=== PATIENT | female | born 1980 | race African-American/Black ===

== ENCOUNTER → 2017-01-12 | Outpatient (CLI) | payer BC ==
[~2017-01-12] MED LIST: ALBUAER2 INH; DIPH25CA37 PO; EPP3/2 IM; IBUP600T44 PO; ZOLP5TAB PO
[2017-01-12 18:33] LABS: URINE APPEARANCE CLEAR (CLEAR); URINE BILIRUBIN NEG (NEG); URINE COLOR YELLOW; URINE NITRITE NEG (NEG); URINE SPECIFIC GRAVITY 1.028 (1.000-1.030); UROBILINOGEN NEG (NEG)
[2017-01-12 18:35] LABS: MANUAL MICROSCOPIC REQUIRED? NO; REVIEW REQ? NO
== END | disposition home or self-care (01) ==
LOC: C.LABSPEC 17:35
PROVIDERS: ATTEND Obstetrics & Gynecology
DX: O34.219 Maternal care for unspecified type scar from previous cesarean delivery (principal)

== ENCOUNTER → 2017-01-21 | Outpatient (CLI) | payer BC | END | disposition home or self-care (01) | LOC: C.PAPS 16:14 | PROVIDERS: ATTEND Obstetrics & Gynecology | DX: Z34.91 Encounter for supervision of normal pregnancy, unspecified, first trimester (principal) ==

== ENCOUNTER → 2017-01-21 | Outpatient (CLI) | payer BC ==
[2017-01-24 01:36] LABS: CHLAMYDIA TRACH RNA*** NOT DETECTED (NOT DETECTED); GC (NEIS GONORRHOEAE)RNA** NOT DETECTED (NOT DETECTED)
== END | disposition home or self-care (01) ==
LOC: C.LABSPEC 08:59
PROVIDERS: ATTEND Obstetrics & Gynecology
DX: O34.219 Maternal care for unspecified type scar from previous cesarean delivery (principal)

== ENCOUNTER → 2017-02-02 | Outpatient (CLI) | payer BC ==
[2017-02-02 10:41] LABS: COMPLETE YES; EOS % 2.9 %; HEMATOCRIT 37.2 % (37-47); IG% 0.2 %; LYMPH % 35.9 %; LYMPH ABS # 2.08 K/uL (1.2-3.4); MEAN CELL VOLUME 86.9 fL (80-100); MEAN CORPUSCULAR HEMOGLOBIN 30.4 pg (25-34); MEAN CORPUSCULAR HGB CONC 34.9 g/dl (32-36); MONO % 5.3 %; NEUT % 55.7 %; PLATELET COUNT 328 K/uL (130-400); RED BLOOD COUNT 4.28 M/uL (4.2-5.4)
== END | disposition home or self-care (01) ==
LOC: C.LAB1850 09:30
PROVIDERS: ATTEND Obstetrics & Gynecology
DX: O34.219 Maternal care for unspecified type scar from previous cesarean delivery (principal); Z3A.00 Weeks of gestation of pregnancy not specified

== ENCOUNTER → 2017-03-20 | Outpatient (CLI) | payer BC ==
[2017-03-20 11:46] LABS: GTGD 50 Grams
== END | disposition home or self-care (01) ==
LOC: C.LAB1850 09:44
PROVIDERS: ATTEND Obstetrics & Gynecology
DX: Z34.93 Encounter for supervision of normal pregnancy, unspecified, third trimester (principal)

== ENCOUNTER → 2017-04-07 | Outpatient (CLI) | payer BC ==
[2017-04-07 18:50] LABS: URINE APPEARANCE CLEAR (CLEAR); URINE BILIRUBIN NEG (NEG); URINE COLOR YELLOW; URINE NITRITE NEG (NEG); URINE PH 7.5 (4.5-7.5); URINE SPECIFIC GRAVITY 1.014 (1.000-1.030); UROBILINOGEN NEG (NEG)
[2017-04-07 19:01] LABS: MANUAL MICROSCOPIC REQUIRED? NO; REVIEW REQ? NO
== END | disposition home or self-care (01) ==
LOC: C.LABSPEC 10:16
PROVIDERS: ATTEND Nurse Practitioner Adult Health
DX: O26.899 Other specified pregnancy related conditions, unspecified trimester (principal)

== ENCOUNTER → 2017-04-13 | Outpatient (CLI) | payer BC ==
[2017-04-14 05:59] LABS: ESTIMATED AVERAGE GLUCOSE 117 mg/dl; HA1C FLAG Normal (Normal)
== END | disposition home or self-care (01) ==
LOC: C.LAB1850 16:34
PROVIDERS: ATTEND Internal Medicine Endocrinology, Diabetes & Metabolism
DX: O24.419 Gestational diabetes mellitus in pregnancy, unspecified control (principal); Z3A.00 Weeks of gestation of pregnancy not specified

== ENCOUNTER → 2017-06-16 | Outpatient (CLI) | payer BC ==
[2017-06-16 12:28] LABS: HEMATOCRIT 34.5 % (37-47)
[2017-06-16 14:22] LABS: URINE APPEARANCE CLEAR (CLEAR); URINE BILIRUBIN NEG (NEG); URINE COLOR YELLOW; URINE EPITHELIAL CELL AUTO 20-30 /lpf (0-5); URINE NITRITE NEG (NEG); URINE PH 7.5 (4.5-7.5); URINE SPECIFIC GRAVITY 1.028 (1.000-1.030); UROBILINOGEN NEG (NEG)
[2017-06-16 14:47] LABS: MANUAL MICROSCOPIC REQUIRED? NO; REVIEW REQ? NO; SULFASALICYLIC ACID NEG (NEG)
== END | disposition home or self-care (01) ==
LOC: C.LAB1850 11:18
PROVIDERS: ATTEND Obstetrics & Gynecology
DX: Z34.82 Encounter for supervision of other normal pregnancy, second trimester (principal)

== ENCOUNTER → 2017-08-21 | Outpatient (CLI) | payer OTHER | END | disposition home or self-care (01) | LOC: C.LABSPEC 13:46 | PROVIDERS: ATTEND Obstetrics & Gynecology | DX: R30.0 Dysuria (principal) ==

== ENCOUNTER 2017-08-28 05:10 | Inpatient (IN) | payer BC, OTHER ==
--- NOTE | 2017-08-27 11:50 | PAT Medication Instructions ---
Service Date Aug 27, 2017. Current Home Medication List Acetaminophen (Tylenol), 1,000 MG PO PRN Albuterol Hfa (Ventolin Hfa), 2 PUFFS INH Q6H PRN for PRN Diphenhydramine Hcl (Benadryl Allergy), 1-2 CAP PO PRN Epinephrine (Epipen), 0.3 MG IM UD Multivit/Min/Iron/Fol Ac/Pren ( Vitamin), 1 TAB PO HS [Humalog Insulin], 20 UNITS INJ TIDM [Humulin], 20 UNITS INJ HS Medication Instructions For Your Scheduled Surgery - Continue as directed: Epinephrine (Epipen), 0.3 MG IM UD - Hold the following medications the morning of surgery: [Humalog Insulin], 20 UNITS INJ TIDM Diphenhydramine Hcl (Benadryl Allergy), 1-2 CAP PO PRN - Take the following medications the morning of surgery with a sip of water OTHERWISE NOTHING TO EAT OR DRINK AFTER MIDNIGHT: Acetaminophen (Tylenol), 1,000 MG PO PRN (may take if needed up to 4 hours prior to surgery) - Take the following medications as scheduled the night before surgery: [Humulin N], 20 UNITS INJ HS [Humalog Insulin], 20 UNITS INJ TIDM Acetaminophen (Tylenol), 1,000 MG PO PRN Multivit/Min/Iron/Fol Ac/Pren ( Vitamin), 1 TAB PO HS Diphenhydramine Hcl (Benadryl Allergy), 1-2 CAP PO PRN If you have any questions please call us at [phone] or [phone] or [phone]
--- NOTE | 2017-08-27 12:49 | HISTORY & PHYSICAL EXAMINATION ---
DATE OF ADMISSION: 08/28/2017 NOTICE TO RECEIVING [facility]/AGENCY This information is strictly Confidential and protected under [place] law. [place] law prohibits you from making any further disclosure of this information unless further disclosure is expressly permitted by the written consent of the person to whom it pertains or is authorized by law. A general authorization for the release of medical or other information is not sufficient for this purpose. Hospital accepts no responsibility if the information is made available to any other person, INCLUDING THE PATIENT. HISTORY OF PRESENT ILLNESS: Ronna is a 36-year-old 3, para 1-0-1-1 at 39-2/7 weeks who presents for a repeat section. Her first delivery was in April 2011 at 39 and 3/7 weeks and was delivered of an 8 pound baby with intolerance to labor. Although the patient had hoped for a she developed insulin requiring gestational diabetes and has now reached term and so recommendation for delivery by due date. She has no signs or symptoms of labor. Is agreeable to a repeat section. She declines tubal ligation as her will be obtaining a vasectomy. The patient probably has prediabetes as her 16-week glucose test was 212 so she is probably a pregestational diabetic. She has been managed with insulin throughout the . Her most recent growth ultrasound was performed on August 11 at 36 and 6/7 weeks. This revealed an AC in the 90th percentile and estimated weight in the 79th percentile. She has been having weekly NSTs since 32 weeks, which have been reactive and twice weekly NSTs at 36 weeks which have been reactive. She does have a history of depression and she is A positive, group B strep carrier. She has asthma, but this has been well controlled. PAST OBSTETRICAL AND GYNECOLOGIC HISTORY: As noted above. She does have a history of elective termination in October of 1999. The specimen denies history of sexually transmitted diseases or abnormal Pap smears. ALLERGIES: PENICILLIN CAUSING HIVES AND ITCHING, VICODIN TABS CAUSING ITCHING AND SLEEPINESS, AZITHROMYCIN AND DOXYCYCLINE CAUSING VOMITING. MEDICATIONS: Insulin, montelukast sodium, Ventolin inhaler, Benadryl as needed, vitamins and Flonase. PAST MEDICAL HISTORY: Significant for being prediabetic/type 2 diabetic, migraines, anxiety and depression, asthma. She has had the chickenpox. She also has psoriasis and psoriatic arthritis. PAST SURGICAL HISTORY: Includes , D&C and wisdom teeth removal. SOCIAL HISTORY: The patient denies tobacco, alcohol or drug use. She lives with her spouse and son. PAST OB AND REGIONAL ACCOUNT MANAGER HISTORY: The patient denies history of sexually transmitted diseases or abnormal Pap smears. PHYSICAL EXAMINATION: GENERAL: This is a well-developed, well-nourished -[place] female in no acute distress. VITAL SIGNS: Blood pressure 110/80, weight 172 pounds. NECK: Supple without thyromegaly or lymphadenopathy. CHEST: Clear to auscultation bilaterally. CARDIOVASCULAR: Regular rate and rhythm without murmurs, gallops or rubs. ABDOMEN: Soft, gravid and nontender. BACK: Without costovertebral angle tenderness. EXTREMITIES: Benign. PELVIC: Deferred. LABORATORY DATA: Blood type O positive, antibody negative, rubella immune, RPR nonreactive. Urine culture at her first OB grew out group B strep. Hepatitis negative, HIV negative, chlamydia and gonorrhea negative, cystic fibrosis screening negative. ASSESSMENT: Ronna is a 36-year-old -[place] female 3, para 1-0-1-1 with an intrauterine at 39 and 2/7 weeks. She presents for repeat section secondary to insulin requiring gestational diabetes without onset of labor. The risks of the procedure were discussed with the patient. The risks including anesthesia, bleeding that might require transfusion, infection, poor wound healing, damage to surrounding structures including bowel, bladder, vessels, nerves and ureters with need for further surgery, hospitalization or intervention. Discussed also the risks of any surgery including heart attack, blood clot, stroke or . Consent was reviewed and signed. She declines tubal ligation. Surgery is planned for the
[2017-08-27 13:11] LABS: BASO % 0.2 %; BASO ABS # 0.01 K/uL (0-0.2); EOS % 6.9 %; HEMATOCRIT 36.8 % (37-47); HEMOGLOBIN 12.6 g/dL (12.0-16.0); IG# 0.03 K/uL (0.00-0.02); LYMPH % 21.8 %; LYMPH ABS # 1.26 K/uL (1.2-3.4); MEAN CELL VOLUME 90.9 fL (80-100); MEAN CORPUSCULAR HEMOGLOBIN 31.1 pg (25-34); MEAN CORPUSCULAR HGB CONC 34.2 g/dl (32-36); MEAN PLATELET VOLUME 9.3 fL (7.4-10.4); MONO % 10.9 %; MONO ABS # 0.63 K/uL (0.11-0.59); NEUT % 59.7 %; NEUT ABS # 3.44 K/uL (1.4-6.5); PLATELET COUNT 242 K/uL (130-400); RED CELL DISTRIBUTION WIDTH SD 46.2 fL (36.4-46.3); WHITE BLOOD COUNT 5.77 K/uL (4.8-10.8)
[~2017-08-28] VITALS: Ht 154.9 cm; Wt 77.6 kg
[2017-08-28] VITALS (7 sets, daily range): BP systolic 127–143; BP diastolic 72–89; PULSE 78–88; TEMP 36.4–37; O2SAT 96–100; Ht 154.9 cm; Wt 77.6 kg
[~2017-08-28 05:10] MED LIST changes: +ACET-1256 PO; -ALBUAER2 INH; -DIPH25CA37 PO; +DIPH25CA65 PO; -IBUP600T44 PO; +INSU100I SC; +INSU1INJ23 SC; +PRENTAB26 PO; -ZOLP5TAB PO
[2017-08-28] MEDS ORDERED: LACTATED RINGER'S 1000ML 1,000 ML IV SCH ×3 (05:15→10:37)
[2017-08-28] MEDS ORDERED: CITRIC ACID/SODIUM CITRATE 15 ML UDC PO SCH (06:00)
[2017-08-28] MEDS ORDERED: CLINDAMYCIN IV 900 MG in DEXTROSE 5% 50ML 44 ML IV SCH (06:00)
[2017-08-28 06:09] LABS: BASO % 0.1 %; BASO ABS # 0.01 K/uL (0-0.2); EOS % 4.8 %; EOS ABS # 0.33 K/uL (0-0.5); HEMOGLOBIN 12.4 g/dL (12.0-16.0); IG# 0.03 K/uL (0.00-0.02); LYMPH % 26.1 %; MEAN CELL VOLUME 90.7 fL (80-100); MEAN CORPUSCULAR HEMOGLOBIN 31.2 pg (25-34); MEAN CORPUSCULAR HGB CONC 34.4 g/dl (32-36); MEAN PLATELET VOLUME 9.4 fL (7.4-10.4); MONO % 11.2 %; MONO ABS # 0.77 K/uL (0.11-0.59); NEUT % 57.4 %; NEUT ABS # 3.96 K/uL (1.4-6.5); PLATELET COUNT 255 K/uL (130-400); RED CELL DISTRIBUTION WIDTH CV 13.9 % (11.5-14.5); RED CELL DISTRIBUTION WIDTH SD 45.9 fL (36.4-46.3)
--- NOTE | 2017-08-28 07:19 | History & Physical Bridge Note ---
H&P Re-Evaluation Bridge Note: I have examined the patient, reviewed the History & Physical and in the interval since the performance of the History & Physical I have noted the following changes of clinical significance: No changes noted
[2017-08-28] MEDS ORDERED: MoRPHine SULFATE PF 1 MG/ML 10 ML AMP/VIAL ONE (07:27)
[2017-08-28] MEDS ORDERED: OXYTOCIN INJ 10 UNITS/ML VIAL ONE ×2 (07:27→08:27)
[2017-08-28] MEDS ORDERED: FENTANYL CITRATE INJ 50 MCG/1 ML 2 ML VIAL ONE (07:27)
[2017-08-28] MEDS ORDERED: PHENYLEPHRINE HCL INJ 10 MG/ML VIAL ONE (07:54)
[2017-08-28] MEDS ORDERED: ONDANSETRON INJ 2 MG/ML 2 ML VIAL ONE (08:10)
--- NOTE | 2017-08-28 08:41 | [facility] Post Operative Brief Note ---
Immediate Operative Summary Operative Date Aug 28, 2017. Pre-Operative Diagnosis IUP AT 39+ WEEKS; HISTORY OF PREVIOUS SECTION; INSULIN REQUIRING GESTATIONAL DIABETIC Post-Operative Diagnosis SAME Procedure(s) Performed Repeat LOW TRANSVERSE SECTION WITH DELIVERY OF LIVE FEMALE CHILD Surgeon DR VANCE Medicare Sales Executive Surgeon(s) DR ARIAS Estimated Blood Loss 700 CC Findings Consistent with Post-Op Diagnosis Fluids (cc crystalloids) 2000cc Specimens PLACENTA-HOLD CORD BLOOD Drains None Anesthesia Type Spinal Complication(s) none Disposition Accompanied Pt To Recover: yes Disposition: L&D
[2017-08-28] MEDS ORDERED: LACTATED RINGER'S 1000ML 500 ML IV PRN (08:44)
[2017-08-28] MEDS ORDERED: NALOXONE HCL INJ 0.08 MG in SYRINGE 1.8 ML IV PRN (08:44)
[2017-08-28] MEDS ORDERED: NALOXONE HCL INJ 1 MG in SODIUM CHLORIDE 0.9% 1000ML 1,000 ML IV PRN (08:44)
[2017-08-28] MEDS ORDERED: SODIUM CHLORIDE 0.9% 1000ML 1,000 ML IV PRN (08:44)
[2017-08-28] MEDS ORDERED: MoRPHine SULFATE PF 1 MG/ML 10 ML AMP/VIAL EPI PRN (08:45)
[2017-08-28] MEDS ORDERED: NALOXONE HCL 0.4 MG/1 ML VIAL/CARP IV PRN (08:45)
[2017-08-28] MEDS ORDERED: SUPERCREAM 0.870 % 15GM JAR EXT PRN (08:45)
[2017-08-28] MEDS ORDERED: ACETAMINOPHEN 325 MG TAB PO PRN (08:45)
[2017-08-28] MEDS ORDERED: NALBUPHINE HCL INJ 10 MG/ML AMP IV PRN (08:45)
[2017-08-28] MEDS ORDERED: DIPHTHERIA/TETANUS/PERTUSSIS 0.5 ML SYR/VIAL IM. ONE (08:45)
[2017-08-28] MEDS ORDERED: MoRPHine SULFATE 2 MG/ML CARP IV PRN (08:45)
[2017-08-28] MEDS ORDERED: EpHEDrine SULFATE INJ 50 MG/ML AMP IV PRN (08:45)
[2017-08-28] MEDS ORDERED: BENZOCAINE 20% AER SPR 82.5 GM CAN EXT PRN (08:45)
[2017-08-28] MEDS ORDERED: NO NARCOTICS OR SEDATIVES SCH (08:45)
[2017-08-28] MEDS ORDERED: HYDROCORTISONE ACETATE 25 MG SUPP PR PRN (08:45)
[2017-08-28] MEDS ORDERED: DiphenhydrAMINE HCL 50 MG/ML VIAL IV PRN (08:45)
[2017-08-28] MEDS ORDERED: OXYTOCIN 30 UNITS/500ML NSS IV PRN (08:45)
[2017-08-28] MEDS ORDERED: LANOLIN OINT EXT PRN ×2 (08:45→10:45)
--- NOTE | 2017-08-28 08:57 | Anesthesiology Progress Note ---
Anesthesia Post Op Note Date & Time Aug 28, 2017 at 08:56 Notes Mental Status: alert / awake / arousable, participated in evaluation Pt Amnestic to Procedure: Yes Nausea / Vomiting: adequately controlled Pain: adequately controlled Airway Patency, RR, SpO2: stable & adequate BP & HR: stable & adequate Hydration State: stable & adequate Neuraxial Anesthesia: was administered, sensory block is resolving Anesthetic Complications: no major complications apparent
--- NOTE | 2017-08-28 09:02 | Medical Student: [facility] ---
Immediate Operative Summary Operative Date Aug 28, 2017. Pre-Operative Diagnosis IUP at 40 weeks, prior section, insulin treated gestational DM Post-Operative Diagnosis Same Procedure(s) Performed Repeat section via low lying incision and delivery of live female . Surgeon Dr. Castellanos [employer] Surgeon(s) Daniel Kumari MS3 Estimated Blood Loss 800cc Findings Viable female child of 8lb 12oz. Fluids (cc crystalloids) 2000 Specimens Placenta Cord blood Drains None Anesthesia Spinal Complication(s) None Disposition L&D
[2017-08-28] MEDS: ONDANSETRON INJ 2 MG/ML 2 ML VIAL IV PRN ×2 (10:36→18:47)
[2017-08-28] MEDS: KETOROLAC TROMETHAMINE 30 MG/ML VIAL IV. PRN ×3 (10:43→23:32)
[2017-08-28] MEDS ORDERED: DC PCA PRN (10:45)
[2017-08-28] MEDS ORDERED: IBUPROFEN 600 MG TAB PO PRN (10:45)
[2017-08-28] MEDS ORDERED: OXYTOCIN INJ 20 UNITS in LACTATED RINGER'S 1000ML 1,000 ML IV SCH (11:30)
[2017-08-28] MEDS: MEPERIDINE HCL 25 MG/ML CARP IV PRN ×2 (11:42→14:16)
[2017-08-28] MEDS: SIMETHICONE 80 MG CHEW PO SCH ×3 (12:00→19:44)
--- NOTE | 2017-08-28 13:45 | OPERATIVE REPORT ---
DATE OF OPERATION: 08/28/2017 PREOPERATIVE DIAGNOSES: 1. Intrauterine at 39 weeks. 2. History of previous section. 3. Insulin requiring gestational diabetes. POSTOPERATIVE DIAGNOSES: Same. PROCEDURE: Repeat lower transverse section. SURGEON: Dr. Kia Castellanos. [employer]BILE [employer]ANT OPERATORS: Dr. Ledezma and Daniel Gutiérrez, MS3. ANESTHESIA: Spinal. ESTIMATED BLOOD LOSS: 700 mL. FLUIDS: 2000 mL. URINE OUTPUT: 60 mL of clear yellow urine drained from the bladder at the end of the procedure. INDICATIONS: The patient is a 2, para 1-0-0-1, who presents for repeat section. She was diagnosed with gestational diabetes at her 16-week Glucola when she felt bad with a value of 212, which likely meant she was a pregestational diabetic. She was monitored throughout with growth ultrasounds and NSTs and the baby did well. She had hoped to be back, but given the recommendation and an insulin-requiring gestational diabetic she delivered around her due date and labor was not eminent. We have elected to proceed with repeat section. FINDINGS: Viable female infant delivered from cephalic presentation. Weight pending. Apgars 8 and 9. Normal uterus, tubes, and ovaries were noted bilaterally. There was a small broad ligament hematoma after repairing the hysterotomy that was evaluated and found to be stable. COMPLICATIONS: None. DRAINS: Mueller. DISPOSITION: To recovery room in stable condition. DESCRIPTION OF PROCEDURE: The patient was taken to the operating room, where she was identified verbally and by bracelet. She was seated on the operating table where spinal anesthetic was placed by anesthesia. She was placed in dorsal supine position with a leftward tilt and a Mueller catheter was placed sterilely. She was prepped and draped sterilely. Her anesthetic was tested and found to be adequate. A time-out was done identifying correct patient, procedure, positioning and preoperative antibiotics. A Pfannenstiel skin incision was made over the previous incision and this was taken down to the underlying layer of fascia with the knife and Bovie electrocautery. Bleeding was attended to with Bovie electrocautery. The fascia was incised in the midline with cautery and taken out laterally with scissors. The superior edge of the fascial incision was grasped, elevated and the underlying layer of rectus muscle was taken off bluntly and with scissors. In a similar fashion, the inferior edge of the fascial incision was grasped, elevated and the underlying layer of rectus muscle was taken off bluntly and with scissors. The muscles were bluntly in the midline. The peritoneum had been entered sharply while removing the fascia from the rectus muscle. The nut blanker operator's finger was placed through this and there were no adhesions. The peritoneum was taken superiorly and inferiorly sharply with scissors with good visualization of the bladder. The incision was stretched. The bladder blade was placed. The bladder flap was created sharply using scissors and the flap was created sharply and digitally with the nut blanker operator's finger. The bladder blade was replaced. The hysterotomy incision was scored with a knife. It was entered with a snap. The nut blanker operator's fingers were placed into this and the incision was stretched. Amniotomy occurred during this with clear fluid. The nut blanker operator's hand was placed into the incision and the head was delivered through the incision atraumatically using fundal pressure. There was no nuchal cord. The nose and mouth were bulb suctioned. The rest of the infant was then delivered without difficulty. There was immediate cry. was vigorous. The nose and mouth were bulb suctioned. The cord was clamped and cut and the was handed off to waiting disk operator for drying and attention. Cord blood was obtained. The placenta was manually expressed. The uterus was exteriorized and cleared of all clot and debris with moistened laparotomy sponges. The hysterotomy incision was repaired in 2 layers, the first in a running locked layer and the second in an imbricating layer. A small hematoma was noted in the broad ligament on the left that was observed closely and was not found to be expanding. The posterior cul-de-sac was irrigated and cleared of all clot and debris. The hysterotomy incision was again inspected and found to be hemostatic. The hematoma on the left side was stable. The uterus was reanteriorized. Bleeding area on the incision was attended with a [id number] suture of 0 Vicryl. Some bleeding edges were attended to with Bovie electrocautery. The incision was again inspected and found to be hemostatic. The small hematoma in the left broad ligament was stable. Muscles were reapproximated in the midline with interrupted sutures of 0 Vicryl. The fascia was reapproximated in the midline, starting at the edges and meeting in the middle with 0 Vicryl. Subcuticular tissue was irrigated and bleeding was attended to with Bovie electrocautery until hemostasis was good and the skin was closed with subcuticular stitch of 4-0 Vicryl. All sponge, lap and needle counts were correct x2. The patient tolerated the procedure well and was taken to recovery room in stable condition. I attest to the content of the Intraoperative Record and any orders documented therein. Any exception s are noted below.
--- NOTE | 2017-08-28 17:07 | Discharge Instructions ---
Discharge Instructions Date of Service Aug 28, 2017. Admission Reason for Admission: Previous Delivery, Ante Discharge Discharge Diagnosis / Problem: delivery Discharge Goals Goal(s): Routine recovery after Medications Continue Dispensed Medications: lansinoh Activity Recommendations Activity Limitations: per Instructions/Follow-up section . Instructions / Follow-Up Instructions / Follow-Up Please note: you will need to be re-tested for diabetes with a glucose tolerance test at 6 weeks after delivery. This is done to make sure you are not still diabetic, please be sure to do this. ACTIVITY RECOMMENDATIONS: * Gradual return to full activity over the next 2-3 weeks. * No lifting - nothing heavier than baby over the next 2-3 weeks. * Do not engage in vigorous exercise, sexual activity or sports until cleared by your physician. * Do not drive or operate any motorized equipment until cleared by your physician. * You may shower/bathe daily. MEDICATIONS: For discomfort or pain, you may use Acetaminophen (Tylenol), Ibuprofen (Advil), or Naproxen (Aleve) following the package directions. For constipation you may use Colace following the package directions. BREAST CARE: If you are not breast feeding: * Wear a supportive bra 24 hours a day for one to two weeks. * Avoid stimulating your breasts and nipples as much as possible during the first few weeks after delivery. * When taking a shower, have the warm water hit your back, not breasts. * When your breasts feel full, apply ice packs. Usually three to four times a day helps ease the discomfort. * Take a mild pain medication (Tylenol / Motrin) when you are uncomfortable. If breast feeding: * Use breast milk to lubricate nipples. Lansinoh cream may be used for sore nipples. You do not need to remove cream prior to breast feeding. If using a different brand of cream, check the label for directions regarding removal of cream prior to nursing. * Wear a supportive bra. * If having problems with breasts or breast feeding, call a sharepoint consultant or your health care provider. SPECIAL CARE INSTRUCTIONS: When you are discharged from the hospital, it is important for you to follow the instructions listed below: * During the first week at home, you should be able to care for yourself and your baby. In addition, the usual light household activities are encouraged. * Limit your activities to the way you feel. Do not try to clean the house or move furniture. Be sensible. * If you actively engage in sports and have done so up until the time of your delivery, you may resume these activities as soon as you feel able. This may take up to one month or even longer. Use good judgment. * Continue to take your vitamins for at least six weeks after the of your baby. * Your diet need not be limited unless you were on a special diet before your delivery. Breast-feeding mothers need around 2500 calories per day and at least 64-80 ounces of fluid per day (8 to 10 glasses). * You should eat foods from the four major food groups. Crash diets or fad diets are to be avoided. Eating lean meats, fresh fruits and vegetables, low-fat dairy products, high fiber foods and a regular exercise program, will help you get back to your pre- weight without putting your health at risk. * Constipation is sometimes a problem after delivery. Take a mild laxative as needed. If breast feeding, Milk of Magnesia is acceptable to use. You may use a suppository or Fleets enema. * A daily shower or tub bath is suggested. Wash incision daily with warm soapy water and pat dry. It doesn't need to be covered unless drainage is present. * A bloody vaginal discharge will usually continue until around four weeks . A small amount of bleeding may continue for as long as six weeks. Vaginal discharge changes from the bright red bleeding after delivery to pink then brownish and finally yellowish-pink before becoming white and disappearing. * Bleeding may increase with activity. Your first period may come in 4-8 weeks. If you are breast feeding, your period may be delayed even longer. * [place] (sex) can begin whenever both you and your partner feel comfortable and do not have any form of genital infection. It is recommended that you wait at least six weeks for internal and external healing to occur. If you have questions, please talk to your health care practitioner. A condom should be used to prevent infection and . * Foreplay, gentle intercourse and lubrication is very important the first several times to prevent pain. A water-based lubricant such as K-Y jelly or Astroglide may be used. * If you have RH negative blood and your baby is RH positive, you will receive RHOGAM by injection prior to discharge. The nurse will give you a card to keep with you that has the date and place that you received RHOGAM after delivery. * During your care, you had a Rubella screen done to check for the presence of rubella antibodies in your blood. If your test was negative, you will receive a Rubella vaccine prior to discharge. This vaccine may cause a fever, soreness at the injection site and flu-like symptoms. If these symptoms persist, notify your health care practitioner. is not advised for one month after a Rubella vaccine. * Verbalizes understanding of car seat law as reviewed with patient nursing. * Car Seat hand-out given and reviewed with patient by nursing. * Shaken baby information reviewed with patient by nursing. Call you doctor if: * Heavy bleeding (saturating several pads an hour) or passing clots the size of your fist. * A fever >101 degrees F (38.3 degrees C) on two occasions four hours apart and /or chills. * Unusual pain in the pelvic or vaginal areas. * Call the doctor for any increased redness, drainage or swelling around the incision and any pain unrelieved by prescribed pain medication. * "Baby Blues" lasting longer than two weeks. If you have any questions or concerns, call your health care practitioner at . FOLLOW UP VISIT: * Please call the office at to schedule a 6 week examination. It is important you keep this appointment. It is important for you to make arrangements for either yearly or twice yearly check-ups thereafter. Current Hospital Diet Patient's current hospital diet: Regular OB Diet Discharge Diet Recommended Diet: Regular Diet Procedures Procedures Performed: Repeat LOW TRANSVERSE SECTION WITH DELIVERY OF LIVE FEMALE CHILD Pending Studies Studies pending at discharge: no Medical Emergencies . Who to Call and When: Medical Emergencies: If at any time you feel your situation is an emergency, please call 911 immediately. . Non-Emergent Contact Non-Emergency issues call your: Primary Care Provider . . "Provider Documentation" section prepared by Rubina Nelson. . VTE Core Measure Inpt VTE Proph given/why not?: SCD's
[2017-08-28] MEDS: DOCUSATE SODIUM 100 MG CAP PO SCH ×2 (19:43→19:44)
[2017-08-29] MEDS ORDERED: MEPERIDINE HCL 50 MG/ML CARP IV PRN ×2 (01:30)
[2017-08-29] MEDS ORDERED: DiphenhydrAMINE HCL 50 MG/ML VIAL IV PRN (01:30)
[2017-08-29] MEDS ORDERED: OXYCODONE/ACETAMINOPHEN 5-325 TAB PO PRN (01:30)
[2017-08-29] MEDS ORDERED: KETOROLAC TROMETHAMINE 30 MG/ML VIAL IV. PRN (01:30)
[2017-08-29] MEDS ORDERED: DC INTRASPINAL MORPHINE ONE (01:30)
[2017-08-29 04:30] VITALS: BP 128/82; PULSE 74; TEMP 36.8; O2SAT 99
[2017-08-29 07:20] VITALS: BP 128/83; PULSE 89; TEMP 37; O2SAT 99
--- NOTE | 2017-08-29 07:21 | Progress Note ---
Subjective Aug 29, 2017. Subjective conversation w/ patient (Pt doing well, nausea resolved. Cath out this AM. Has not walked to bathroom yet.), physical exam, chart review, lab review Ambulation: limited ambulation Voiding: no voiding problems Passing Gas: Yes Diet Tolerance: Regular Diet Lochia: Moderate Feeding Type: Breast Feeding Pain: controlled Review of Systems Respiratory: No shortness of breath Cardiac: No palpitations Abdomen: No nausea, No vomiting Objective Vital Signs Date Time Temp Pulse Resp B/P (MAP) Pulse Ox O2 Delivery O2 Flow Rate FiO2 08/29/17 04:30 36.8 74 16 128/82 (97) 99 Room Air 08/28/17 23:35 36.9 83 18 138/81 (100) 97 Room Air 08/28/17 23:35 18 96 08/28/17 23:35 96 Room Air 08/28/17 22:30 20 98 08/28/17 21:30 20 98 08/28/17 20:30 20 100 08/28/17 19:30 20 100 08/28/17 19:30 37.0 78 20 127/85 (99) 100 Room Air 08/28/17 15:30 36.8 86 20 143/89 (107) Room Air 08/28/17 15:30 20 98 08/28/17 15:30 98 Room Air 08/28/17 11:30 100 Room Air 08/28/17 11:30 36.4 88 20 128/72 (90) 100 Room Air 08/28/17 11:30 36.4 88 20 128/72 (90) 100 Room Air 08/28/17 11:30 20 100 Physical Exam General Appearance: WELL-APPEARING, WD/WN, NO APPARENT DISTRESS Respiratory/Chest: lungs clear, normal breath sounds, no respiratory distress Cardiovascular: regular rate, rhythm Abdomen: soft Fundus: Firm, Non-Tender, Relation to Umbilicus (at U) Incision Description: Clean, Dry & Intact Extremities: no calf tenderness Laboratory Results Last 24 Hours Test 08/28/17 07:27 08/29/17 04:44 Bedside Glucose 90 mg/dl Assessment and Plan Post-Op Day#: 1 Continue Routine Care: 36 yof [id number], s/p C/S 08/28 O+/RI/GBS+ appropriate abx given Vitals reviewed and wnl Hgb stable Pt doing well clinically, states she has been diagnosed by her PCP as a pre- diabetic. POC glucose here wnl. Will need 6 week post GTT and routine follow up with her PCP. Continue routine care - enc ambulation, support, monitor pain and lochia. GABRIELE NELSON FMR PGY 1 Resident Physician Supervision Note: I interviewed and examined the patient. Discussed with Dr. Nelson and agree with findings and plan as documented in the note. Any exceptions or clarifications are listed here: [None] Documented By: Blanca Oropeza Resident Tracking Resident Involvement: Resident Care Provided Care Provided: OB Delivery
[2017-08-29] MEDS ORDERED: PRENATAL VITAMIN TAB PO SCH (08:00)
[2017-08-29 08:36] LABS: BASO % 0.1 %; BASO ABS # 0.01 K/uL (0-0.2); EOS % 3.7 %; EOS ABS # 0.27 K/uL (0-0.5); HEMATOCRIT 32.1 % (37-47); IG# 0.02 K/uL (0.00-0.02); LYMPH % 22.4 %; LYMPH ABS # 1.64 K/uL (1.2-3.4); MEAN CELL VOLUME 90.7 fL (80-100); MEAN CORPUSCULAR HEMOGLOBIN 31.1 pg (25-34); MEAN CORPUSCULAR HGB CONC 34.3 g/dl (32-36); MEAN PLATELET VOLUME 8.8 fL (7.4-10.4); MONO % 7.3 %; MONO ABS # 0.53 K/uL (0.11-0.59); NEUT % 66.2 %; NEUT ABS # 4.84 K/uL (1.4-6.5); PLATELET COUNT 211 K/uL (130-400); RED CELL DISTRIBUTION WIDTH CV 13.9 % (11.5-14.5); WHITE BLOOD COUNT 7.31 K/uL (4.8-10.8)
[2017-08-29] MEDS: PRENATAL VITAMIN TAB PO SCH (08:40)
[2017-08-29] MEDS: DOCUSATE SODIUM 100 MG CAP PO SCH ×2 (08:41→19:46)
[2017-08-29] MEDS: SIMETHICONE 80 MG CHEW PO SCH ×4 (08:41→19:45)
[2017-08-29] MEDS ORDERED: DIPHTHERIA/TETANUS/PERTUSSIS 0.5 ML SYR/VIAL IM. ONE (09:00)
[2017-08-29 12:00] VITALS: BP 138/79; PULSE 91; TEMP 37; O2SAT 98
[2017-08-29] MEDS: OXYCODONE/ACETAMINOPHEN 5-325 TAB PO PRN ×3 (12:39→20:51)
[2017-08-29 15:30] VITALS: BP 143/87; PULSE 79; TEMP 36.9
[2017-08-29] MEDS: IBUPROFEN 600 MG TAB PO PRN ×2 (16:39→20:50)
[2017-08-29 23:20] VITALS: BP 149/86; PULSE 75; TEMP 36.9
[2017-08-30 00:40] VITALS: BP_SYST 114; BP_SYST 151; BP_DIAS 72; BP_DIAS 82
[2017-08-30] MEDS: IBUPROFEN 600 MG TAB PO PRN ×6 (00:47→22:39)
[2017-08-30] MEDS: OXYCODONE/ACETAMINOPHEN 5-325 TAB PO PRN ×6 (00:47→22:39)
[2017-08-30 04:00] VITALS: BP 135/86
[2017-08-30 06:21] LABS: HEMATOCRIT 32.1 % (37-47); HEMOGLOBIN 10.9 g/dL (12.0-16.0); MEAN CELL VOLUME 91.2 fL (80-100); MEAN PLATELET VOLUME 8.8 fL (7.4-10.4); PLATELET COUNT 210 K/uL (130-400); RED CELL DISTRIBUTION WIDTH CV 14.1 % (11.5-14.5); RED CELL DISTRIBUTION WIDTH SD 46.4 fL (36.4-46.3); WHITE BLOOD COUNT 7.72 K/uL (4.8-10.8)
[2017-08-30] MEDS: DOCUSATE SODIUM 100 MG CAP PO SCH ×3 (07:28→20:29)
--- NOTE | 2017-08-30 07:56 | Progress Note ---
Subjective Aug 30, 2017. Subjective conversation w/ patient, physical exam, lab review Ambulation: ambulating normally Voiding: no voiding problems Passing Gas: Yes Diet Tolerance: Regular Diet Lochia: Small Feeding Type: Breast Feeding Pain: controlled with oral pain meds Comment: Mood good. Wants to hold off on meds for now. Objective Vital Signs Date Time Temp Pulse Resp B/P (MAP) Pulse Ox O2 Delivery O2 Flow Rate FiO2 08/30/17 04:00 135/86 (102) 08/30/17 00:40 151/82 (105) 114/72 (86) 08/29/17 23:20 Room Air 08/29/17 23:20 36.9 75 18 149/86 (107) Room Air 08/29/17 15:30 36.9 79 20 143/87 (105) Room Air 08/29/17 15:30 Room Air 08/29/17 12:00 37.0 91 20 138/79 (98) 98 Room Air Physical Exam General Appearance: WELL-APPEARING, WD/WN, NO APPARENT DISTRESS Abdomen: non tender, soft Fundus: Firm, Non-Tender, Relation to Umbilicus (at u) Incision Description: Clean, Dry & Intact Extremities: non-tender, normal inspection Laboratory Results Last 24 Hours Test 08/29/17 08:21 08/30/17 06:08 White Blood Count 7.31 K/uL 7.72 K/uL Red Blood Count 3.54 M/uL 3.52 M/uL Hemoglobin 11.0 g/dL 10.9 g/dL Hematocrit 32.1 % 32.1 % Mean Corpuscular Volume 90.7 fL 91.2 fL Mean Corpuscular Hemoglobin 31.1 pg 31.0 pg Mean Corpuscular Hemoglobin Concent 34.3 g/dl 34.0 g/dl Platelet Count 211 K/uL 210 K/uL Mean Platelet Volume 8.8 fL 8.8 fL Neutrophils (%) (Auto) 66.2 % Lymphocytes (%) (Auto) 22.4 % Monocytes (%) (Auto) 7.3 % Eosinophils (%) (Auto) 3.7 % Basophils (%) (Auto) 0.1 % Neutrophils # (Auto) 4.84 K/uL Lymphocytes # (Auto) 1.64 K/uL Monocytes # (Auto) 0.53 K/uL Eosinophils # (Auto) 0.27 K/uL Basophils # (Auto) 0.01 K/uL RDW Standard Deviation 46.0 fL 46.4 fL RDW Coefficient of Variation 13.9 % 14.1 % Immature Granulocyte % (Auto) 0.3 % Immature Granulocyte # (Auto) 0.02 K/uL Assessment and Plan Post-Op Day#: 2 Continue Routine Care: Doing well. Routine care. Plan f/u PP at 2 weeks to check meds. MOnitor bps.
[2017-08-30 08:10] VITALS: BP 147/89; PULSE 94; TEMP 37.1
[2017-08-30] MEDS: SIMETHICONE 80 MG CHEW PO SCH ×3 (08:27→20:29)
[2017-08-30] MEDS: PRENATAL VITAMIN TAB PO SCH (08:27)
[2017-08-30 16:30] VITALS: BP 138/87; PULSE 87; TEMP 36.9; O2SAT 99
[2017-08-31] VITALS: BP 138/88; PULSE 76; TEMP 36.8; O2SAT 100
[2017-08-31] MEDS: IBUPROFEN 600 MG TAB PO PRN ×3 (02:48→11:05)
[2017-08-31] MEDS: OXYCODONE/ACETAMINOPHEN 5-325 TAB PO PRN ×3 (02:49→11:05)
--- NOTE | 2017-08-31 05:40 | Progress Note ---
Subjective Aug 31, 2017. Subjective conversation w/ patient, physical exam, lab review Voiding: no voiding problems Passing Gas: Yes Diet Tolerance: Regular Diet Lochia: Small Feeding Type: Breast Feeding Pain: nipple tenderness with breast feeding Objective Vital Signs Date Time Temp Pulse Resp B/P (MAP) Pulse Ox O2 Delivery O2 Flow Rate FiO2 08/31/17 00:00 100 Room Air 08/31/17 00:00 36.8 76 18 138/88 (105) 100 Room Air 08/30/17 16:30 99 Room Air 08/30/17 16:30 36.9 87 20 138/87 (104) Room Air 08/30/17 08:10 37.1 94 20 147/89 (108) Room Air 08/30/17 08:10 Room Air Physical Exam General Appearance: WELL-APPEARING, WD/WN, NO APPARENT DISTRESS Abdomen: non tender, soft Fundus: Firm, Non-Tender, Relation to Umbilicus (at u) Incision Description: Clean, Dry & Intact Extremities: non-tender, normal inspection Laboratory Results Last 24 Hours Test 08/30/17 06:08 White Blood Count 7.72 K/uL Red Blood Count 3.52 M/uL Hemoglobin 10.9 g/dL Hematocrit 32.1 % Mean Corpuscular Volume 91.2 fL Mean Corpuscular Hemoglobin 31.0 pg Mean Corpuscular Hemoglobin Concent 34.0 g/dl RDW Standard Deviation 46.4 fL RDW Coefficient of Variation 14.1 % Platelet Count 210 K/uL Mean Platelet Volume 8.8 fL Assessment and Plan Post-Op Day#: 3 Continue Routine Care: Doing well. Plan d/c home. Instructions given. f/u in 2 weeks for pp check. Call with mood issues.
[2017-08-31] MEDS ORDERED: OXYC-57 PO (05:41)
[2017-08-31 07:20] VITALS: BP 135/83; PULSE 80; TEMP 36.9; O2SAT 99
[2017-08-31] MEDS: PRENATAL VITAMIN TAB PO SCH (07:41)
[2017-08-31] MEDS: DOCUSATE SODIUM 100 MG CAP PO SCH (07:42)
[2017-08-31] MEDS: SIMETHICONE 80 MG CHEW PO SCH (07:42)
[2017-08-31] MEDS ORDERED: INFLUENZA VIRUS QUAD VACCINE 0.5 ML SYR IM. ONE (08:45)
[2017-08-31] MEDS ORDERED: INFLUENZA ADMINISTRATION CHARGE ONE (08:45)
--- NOTE | 2017-09-01 19:36 | DISCHARGE SUMMARY ---
ADMISSION DIAGNOSES: 1. Intrauterine at 39+ weeks. 2. History of section x1. 3. Insulin requiring gestational diabetes. 4. Lack of labor. POSTOPERATIVE DIAGNOSES: Same. PROCEDURES: Repeat lower transverse section. HISTORY OF PRESENT ILLNESS: Ronna is a 36-year-old 3, para 1-0-1-1 at 39-2/7 weeks who presents for repeat section. Her first delivery was in April of 2011 at 39 and 3/7 weeks. She was delivered of an 8 pound baby via section for intolerance to labor. Although the patient had hoped for a , she developed insulin requiring gestational diabetes and has now reached her due date and so recommendation for delivery by due date given this complication. She has no signs or symptoms of labor. She is agreeable to repeat section. She declines tubal ligation and her will be obtaining a vasectomy. The patient probably has pregestational diabetes as her 16 week glucose test was 212. She has been managed with insulin throughout her . Her most recent growth ultrasound was performed on August 11 at 36 and 6/7 weeks with an AC in the 98th percentile and an estimated weight in the 79th percentile. She has been having reactive NSTs since 32 weeks. She does have a history of depression. 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 The rest of the patient's detailed history and physical, please see her dictated history and physical. ASSESSMENT: Ronna is a 36-year-old -[place] female 3, para 1-0-1-1 with an intrauterine at 39 and 2/7 weeks. She presents for repeat section secondary to insulin requiring gestational diabetes without the onset of labor. HOSPITAL COURSE: The patient was admitted, she underwent a repeat lower transverse section without difficulty to deliver a viable female child. There were normal uterus, tubes, and ovaries noted bilaterally. Estimated blood loss was 700 mL. The patient's postoperative course was uncomplicated. She tolerated a regular diet, ambulated without difficulty, voided after removal of her Mueller catheter and had her pain well controlled with oral pain medications. She was discharged home on postoperative day 3. She declined antidepressant treatment for history of previous depression as she was feeling much better after this delivery. She will return in 2 weeks for a postoperative close followup. She will call if she has any concerns. She was discharged home with Percocet for pain.
== END 2017-08-31 14:05 | disposition home or self-care (01) | DRG 766 ==
LOC: C.LD 05:10 → EEVIPCON 07:30 → C.OBG 11:54 → EDSTATUS 09-04 07:30
PROVIDERS: ADMIT Obstetrics & Gynecology; ATTEND Obstetrics & Gynecology
PROC: 10D00Z1 Extraction of Products of Conception, Low, Open Approach (ICD-10-PCS; principal; 2017-08-28 07:30)
DX: O24.424 Gestational diabetes mellitus in childbirth, insulin controlled (principal); O34.211 Maternal care for low transverse scar from previous cesarean delivery; O99.52 Diseases of the respiratory system complicating childbirth; J45.909 Unspecified asthma, uncomplicated; Z22.330 Carrier of Group B streptococcus; Z79.899 Other long term (current) drug therapy; Z37.0 Single live birth; Z3A.39 39 weeks gestation of pregnancy

== ENCOUNTER 2023-06-27 23:27 | Inpatient (IN) ==
--- NOTE | 2023-06-27 23:55 | Emergency Department Note ---
History of Present Illness General Chief complaint: Cardiac Assessment Stated complaint: CHEST PAIN, PALPITATIONS, "HEART FLUTTERS" Time Seen by Provider: 06/27/23 23:44 History of Present Illness Maximum Pain Intensity: 5 This 42-year-old female presents the ER complaining of chest pain shortness of breath and palpitations for the past 2 weeks steadily getting worse. She has traveled recently. No prior heart disease or blood clots or stroke. She had intermittent leg swelling. Patient states her symptoms are worse with activity. Blood sugars have been stable. Patient denies fever, chills, cough, congestion, abdominal pain, flulike illness. Patient also complains of intermittent numbness and tingling to extremities. No heat or cold intolerances. No night sweats. Home Medications Medication Instructions Recorded Confirmed Type ibuprofen 400 mg tablet 400 mg PO BID PRN Pain 10/03/18 04/02/23 History albuterol sulfate 90 mcg/actuation 1 inh inhalation QID PRN shortness 09/30/22 04/02/23 Rx aerosol inhaler of breath or wheezing #8.5 grams diphenhydramine HCl 25 mg tablet PO PRN 09/30/22 04/02/23 History fluticasone propionate 50 intranasal PRN 09/30/22 04/02/23 History mcg/actuation nasal spray,suspension rizatriptan 10 mg disintegrating 10 mg PO .COMPLEX PRN Migraine 09/30/22 04/02/23 Rx tablet (Maxalt-CAD MANAGER) Headache #20 tabs metformin 500 mg tablet,extended 2,000 mg (4 x 500 mg) PO DAILY 11/19/22 04/02/23 Rx release 24hr #360 tabs flaxseed oil 1,000 mg capsule 1,000 mg PO DAILY 12/26/22 04/02/23 History multivitamin (Daily Multi-Vitamin 1 tab PO DAILY 12/26/22 04/02/23 History tablet) propranolol 10 mg tablet 10 mg PO TID PRN anxiety #60 tabs 03/31/23 04/02/23 Rx Allergies Allergy/AdvReac Type Severity Reaction Status Date / Time azithromycin Allergy Intermediate Rash Verified 04/02/23 12:54 doxycycline Allergy Intermediate Rash Verified 04/02/23 12:54 hydrocodone Allergy Intermediate FLUSHING,SWEATING, Verified 04/02/23 12:54 AND ITCHING Penicillins Allergy Intermediate Rash Verified 04/02/23 12:54 nut - unspecified Allergy Mild anaphylaxis Verified 04/02/23 12:54 with every nut except peanuts Fish Containing Products Allergy Unknown ANAPHYLAXIS Verified 04/02/23 12:54 Macrobid Allergy Rash, Uncoded 03/31/23 10:01 sick, shortness of breath, fever, increased HR Past Med/Surg History Medical History (Updated 06/28/23 @ 02:31 by Rickie Richards DO) Diabetes Prolapse of urethra Migraine headache Asthma Surgical History S/P colonoscopy History of tooth extraction H/O section X2 Family History Father Hypertension Mother Hypertension Prediabetes Denies family history of Ovarian cancer Prostate cancer Myocardial infarction Breast cancer Colorectal cancer Social History Smoking Status: Never smoker Second Hand Exposure: Yes ( smokes outside); Do You Dip or Chew Tobacco: No; Hx Alcohol Use: Yes Alcohol type: beer, wine and hard liquor Alcohol Intake Frequency: 2-4 x/Month Hx Substance Use: No Preferred Language: Arabic Visual Impairment: No Limitations Hearing Ability: Normal marital status: Current Living Situation: Spouse and Family current occupational status: employed 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 [employer] How many Children do You have: 2 Feels Safe at Home: Yes Childhood Exposure to Second-Hand Smoke: No Diet: diabetic Dental Care, Regularly: Yes Physical Activity Frequency: Does not Exercise Seatbelt Use: always Sunscreen Use: Yes Review of Systems A total of 10 systems reviewed and were otherwise negative Physical Exam Vital Signs Vital Signs - 24 hr 06/27/23 23:35 06/27/23 23:44 06/27/23 23:59 Temperature 36.5 C Temperature Source Temporal Artery Scan Pulse Rate 100 H Pulse Rate [Apical] 98 H Respiratory Rate 20 13 Respiratory Effort / Characteristics Non-Labored Non-Labored Spontaneous Respiratory Depth Normal Normal Respiratory Pattern Regular Blood Pressure 130/81 Blood Pressure [Right Arm] 131/99 Blood Pressure Mean 97 Blood Pressure Mean [Right Arm] 109 Blood Pressure Position [Right Arm] Semi-fowlers Pulse Oximetry 99 99 100 Oxygen Delivery Method Room Air Room Air Room Air Sepsis Recent Fever Within 48 Hours No Sepsis New/Unexplained Change in Mental Status No Sepsis Action Taken by Nursing No Action Required 06/28/23 01:19 Temperature Temperature Source Pulse Rate Pulse Rate [Apical] 94 H Respiratory Rate 18 Respiratory Effort / Characteristics Non-Labored Spontaneous Respiratory Depth Normal Respiratory Pattern Regular Blood Pressure Blood Pressure [Right Arm] 127/70 Blood Pressure Mean Blood Pressure Mean [Right Arm] 89 Blood Pressure Position [Right Arm] Semi-fowlers Pulse Oximetry 99 Oxygen Delivery Method Room Air Sepsis Recent Fever Within 48 Hours Sepsis New/Unexplained Change in Mental Status Sepsis Action Taken by Nursing VITALS: Vitals are noted on the nurse's note and reviewed by myself. Vital signs stable. GENERAL: Pleasant female, in no acute distress, nondiaphoretic, well-developed well-nourished. SKIN: Capillary reflex less than 2 seconds. HEENT: Normocephalic. PERRLA. EOMI. Nares patent. Mucous membranes moist. Neck is supple without nuchal rigidity. HEART: Regular rate and rhythm LUNGS: Clear to auscultation bilaterally without wheezes, rales or rhonchi. No retractions or accessory muscle use. ABDOMEN: Positive bowel sounds x 4. Normal tympanic percussion. Soft, nontender, without masses or organomegaly. Estevez sign negative. No guarding or rebound tenderness. MUSCULOSKELETAL: No gross musculoskeletal defects. No peripheral edema noted. NEURO: Patient was alert and oriented to person place and time. No focal neurological deficits. Course Administered Medications Magnesium Sulfate/Dextrose (Magnesium Sulfate / D5w) 1 gm in 100 mls @ 100 mls/hr IV Q1H YULISSA Stop: 06/28/23 03:00 Last Admin: 06/28/23 02:19 Dose: 100 mls/hr Documented By: MARY ANNE Infusion: 06/28/23 02:16 Dose: Infused Documented By: MARY ANNE Admin: 06/28/23 01:16 Dose: 100 mls/hr Documented By: MARY ANNE Medical Decision Making Medical Records Attestation: I reviewed the patient's medical records. Home Medications Current Medication List: was personally reviewed by me Laboratory Data Attestation: I reviewed the patient's lab results. 06/28/23 00:06 06/28/23 00:06 Lab Results 06/28/23 06/28/23 06/28/23 Range/Units 00:06 00:41 02:00 WBC 3.78 L (4.8-10.8) K/ul RBC 4.07 L (4.20-5.40) M/uL Hgb 11.2 L (12.0-16.0) g/dl Hct 34.4 L (37.0-47.0) % MCV 84.5 (80.0-100.0) fL MCH 27.5 (25.0-34.0) pg MCHC 32.6 (32.0-36.0) g/dL RDW Std Deviation 41.7 (36.4-46.3) fL RDW Coeff of Merry 13.4 (11.5-14.5) % Plt Count 377 (130-400) K/uL MPV 8.8 L (9.4-12.4) fL Immature Gran % (Auto) 0.3 % Neut % (Auto) 34.1 % Lymph % (Auto) 49.5 % [facility] % (Auto) 13.2 % Eos % (Auto) 2.9 % Baso % (Auto) 0.0 % Neut # (Auto) 1.29 L (1.40-6.50) K/uL Lymph # (Auto) 1.87 (1.20-3.40) K/uL [facility] # (Auto) 0.50 (0.11-0.59) K/uL Eos # (Auto) 0.11 (0.00-0.50) K/uL Baso # (Auto) 0.00 (0.00-0.20) K/uL Immature Gran # (Auto) 0.01 (0.01-0.20) K/uL D-Dimer 300 (0-500) ug/L FEU Sodium 136 (136-145) mmol/L Potassium 4.0 (3.5-5.1) mmol/L Chloride 103 (98-107) mmol/L Carbon Dioxide 28 (21-32) mmol/L Anion Gap 5 (3-11) BUN 13 (6-23) mg/dl Creatinine 0.51 L (0.6-1.2) mg/dl Est Cr Clr Drug Dosing 121.9 ml/min Est GFR ( Amer) 139.4 ml/min Est GFR (Non-Af Amer) 120.3 ml/min BUN/Creatinine Ratio 25.5 H (10-20) Glucose 285 H (70-99(Fasting)) mg/dl Calcium 9.4 (8.6-10.3) mg/dl Magnesium 1.6 L (1.7-2.4) mg/dl Total Bilirubin 0.3 (0.2-1.0) mg/dl AST 33 (13-39) U/L ALT 43 (7-52) U/L Alkaline Phosphatase 79 (34-104) U/L Troponin I High Sens 3.4 3.8 (0-14) pg/ml Total Protein 7.3 (6.0-8.3) gm/dl Albumin 4.0 (3.4-5.0) gm/dl Globulin 3.3 (2.5-4.0) gm/dl Albumin/Globulin Ratio 1.2 (0.9-2) Lipase 67 (11-82) U/L TSH < 0.010 L (0.300-4.500) uIu/ml Free T4 4.12 H (0.61-1.60) ng/dl HCG, Qual Negative (Negative) SARS-CoV-2 (PCR) NEGATIVE (Negative) Influenza Type A (PCR) Negative (Neg) Influenza Type B (PCR) Negative (Neg) RSV (RT-PCR) Negative (Neg) Imaging Data Attestation: I personally reviewed and interpreted this imaging study as follows: MDM Narrative Prior records/ancillary studies reviewed. Triage Nursing notes reviewed. Additional history obtained from nursing. The patient's history was concerning for chest pain. Differential diagnosis: Etiologies such as cardiac ischemia, aortic dissection, pulmonary embolism, pneumonia, pneumothorax, musculoskeletal, infections, pericarditis, myocarditis, esophageal rupture, gastrointestinal, as well as others were entertained. Physical examination: As above. ER treatment provided: An order was placed for continuous cardiac monitoring. The monitor shows a rate of 60-100 with a sinus rhythm per my interpretation. IV fluids, magnesium On reassessment the patient felt better. Diagnostic interpretation by me: The electrocardiogram was Ordered for chest pain EKG: Normal sinus, occasional PVC, T wave inversions in the lateral leads, rate of 103. Impression sinus tachycardia T wave versions in the lateral leads occasional PVC independently interpreted by myself I think arrhythmia is unlikely. EKG shows normal sinus rhythm with no interval abnormalities such as QT prolongation or WPW. There are no findings to suggest Brugada syndrome. Cardiac monitoring in the emergency department reveals no tachycardic or bradycardic dysrhythmia. Hypertrophic cardiomyopathy was considered but there are no clear historical elements pointing toward this. EKG is not suggestive. The QRS voltage is not extremely large The labs Independently Interpreted by myself revealed low TSH and minimally elevated T4. T3 and thyroid antibodies were ordered Hyperglycemia without DKA. Low magnesium and this was replaced as above. Negative hCG. Negative troponin. Mild anemia Negative D-dimer. Imaging studies: Chest x-ray with no acute consolidation, pneumothorax or free air per my independent interpretation HEART SCORE: Hx: high/mod/low suspicion: 0 ECG: ST depression/nonspecific changes/normal: 0 Age: Greater than 65/45-64/less than 45: 0 Risk factors: (Hypertension, hyperlipidemia, diabetes, coronary disease, tobacco use, cocaine use): 1 Troponin: Greater than 2 times normal limits/1-2 times normal limits/normal: 0 Total: 1 Consultation: A consultation was placed with the hospitalist. The case was discussed and diagnostics were reviewed. The patient was evaluated in the ER for further treatment. Exam and history seem consistent with new onset hyperthyroidism with chest pain, palpitations and shortness of breath. Patient's been having intermittent episodes of palpitations and tachycardia with tingling and numbness to extremities. No prior history of thyroid disease. She has not been taking her propranolol for anxiety. Medicine was consulted and the case was discussed. She will be admitted to the medical service for further evaluation and treatment. By the evaluation outlined above emergent etiologies such as cardiac ischemia, aortic dissection, pulmonary embolism, pneumonia, pneumothorax, infections, pericarditis, myocarditis, gastrointestinal, as well as others were deemed relatively unlikely. The pt informed about the findings as listed above. All questions were answered and pleased with the treatment. The chart was completed utilizing [employer] 3D Speech voice recognition software. Grammatical errors, random word insertions, pronoun errors, and incomplete sentences are an occassional consequence of this system due to software limitations, ambient noise, and hardware issues. Any formal questions or concerns about the content, text, or information contained within the body of this dictation should be directly addressed to the physician magistrate assistant for clarification. Impression & Plan Hyperthyroidism, Chest pain, Acute dyspnea, Palpitations, Hypomagnesemia Discharge Plan Visit Data Chief Complaint: Cardiac Assessment Stated Complaint: CHEST PAIN, PALPITATIONS, "HEART FLUTTERS" ED Provider: Daniela Fabian ED Midlevel Provider: Sharmin Castrejon Discharge Problem: Hyperthyroidism, Chest pain, Acute dyspnea, Palpitations, Hypomagnesemia Patient Disposition: Admitted As Inpatient Condition: Good Forms Stand Alone Forms: Work/School Release (ED), Important Visit Information Prescriptions Prescriptions: No Action metformin 500 mg tablet extended release 24hr 2,000 mg PO DAILY Qty: 360 2RF propranolol 10 mg tablet 10 mg PO TID PRN (Reason: anxiety) Qty: 60 2RF multivitamin [Daily Multi-Vitamin] Tablet 1 tab PO DAILY flaxseed oil 1,000 mg capsule 1,000 mg PO DAILY Rx Instructions: administer with a meal albuterol sulfate 90 mcg/actuation HFA aerosol inhaler 1 inh inhalation QID PRN (Reason: shortness of breath or wheezing) Qty: 8.5 0RF rizatriptan [Maxalt-CAD MANAGER] 10 mg tablet,disintegrating 10 mg PO .COMPLEX PRN (Reason: Migraine Headache) Qty: 20 2RF Rx Instructions: Take one tablet at the onset of headache. May repeat dose every 2 hours x2. Do not exceed 3 doses per 24 hrs fluticasone propionate 50 mcg/actuation spray,suspension intranasal PRN diphenhydramine HCl 25 mg tablet PO PRN ibuprofen 400 mg Tablet 400 mg PO BID PRN (Reason: Pain) Referrals Referrals: Flor Hidalgo MD [Primary Care Provider] - Discharge Problem: Chest pain Qualifiers: Chest pain type: unspecified Qualified Code(s): R07.9 - Chest pain, unspecified
[2023-06-28 00:30] LABS: Eosinophils # (auto) 0.11 K/uL (0.00-0.50); Eosinophils % (auto) 2.9 %; Hematocrit (blood only) 34.4 % (37.0-47.0); Hemoglobin 11.2 g/dl (12.0-16.0); Immature Granulocytes # (auto) 0.01 K/uL (0.01-0.20); Immature Granulocytes % (auto) 0.3 %; Lymphocytes # (auto) 1.87 K/uL (1.20-3.40); Lymphocytes % (auto) 49.5 %; Mean Corpuscular Hemoglobin 27.5 pg (25.0-34.0); Mean Corpuscular Hgb Conc 32.6 g/dL (32.0-36.0); Mean Corpuscular Volume 84.5 fL (80.0-100.0); Mean Platelet Volume 8.8 fL (9.4-12.4); Monocytes % (auto) 13.2 %; Neutrophils # (auto) 1.29 K/uL (1.40-6.50); Neutrophils % (auto) 34.1 %; Platelet Count 377 K/uL (130-400); RDW Coefficient of Variation 13.4 % (11.5-14.5); RDW Standard Deviation 41.7 fL (36.4-46.3); Red Blood Count 4.07 M/uL (4.20-5.40); White Blood Count 3.78 K/ul (4.8-10.8)
[2023-06-28 00:40] LABS: Alanine Aminotransferase 43 U/L (7-52); Albumin Globulin Ratio 1.2 (0.9-2); Alkaline Phosphatase 79 U/L (34-104); Anion Gap 5 (3-11); Aspartate Aminotransferase 33 U/L (13-39); BUN Creatinine Ratio 25.5 (10-20); Bilirubin,Total 0.3 mg/dl (0.2-1.0); Blood Urea Nitrogen 13 mg/dl (6-23); Calcium 9.4 mg/dl (8.6-10.3); Carbon Dioxide 28 mmol/L (21-32); Chloride 103 mmol/L (98-107); Creatinine Clr Calc Pharmacy 121.9 ml/min; Est GFR (African American) 139.4 ml/min; Est GFR (Non-African American) 120.3 ml/min; Globulin 3.3 gm/dl (2.5-4.0); Glucose 285 mg/dl (70-99(Fasting)); Lipase 67 U/L (11-82); Magnesium 1.6 mg/dl (1.7-2.4); Sodium 136 mmol/L (136-145); Total Protein 7.3 gm/dl (6.0-8.3)
[2023-06-28 00:44] LABS: Pregnancy Test, Serum Negative (Negative)
[2023-06-28 00:46] LABS: Troponin I High Sensitivity 3.4 pg/ml (0-14)
[2023-06-28 01:03] LABS: Thyroid Stimulating Hormone < 0.010 uIu/ml (0.300-4.500)
[2023-06-28 01:04] LABS: D Dimer 300 ug/L FEU (0-500)
[2023-06-28] MEDS: MAGNESIUM SULFATE / D5W 1 GM/100 ML BAG IV SCH ×2 (01:16→02:19)
[2023-06-28 01:35] LABS: Influenza A virus by PCR Negative (Neg); Influenza B virus by PCR Negative (Neg); RSV by PCR Negative (Neg); SARS CoV2 RNA(COVID-19) Ceph NEGATIVE (Negative)
[2023-06-28 01:40] LABS: T4 Free Thyroxine 4.12 ng/dl (0.61-1.60)
--- NOTE | 2023-06-28 02:36 | History & Physical Report ---
Date of Service June 28, 2023 Assessment & Plan (1) Primary hyperthyroidism: Plan: 42 year old female admitted for heart palpitations. -Palpitations and chest discomfort/shortness of breath for past 2 weeks. -EKG sinus tachycardia with T wave inversions in V4-V6. -TSH <0.010, Free T4 4.12. Free T3 pending. -Electrolytes within normal limits. Hgb 11.2, likely not contributor to palpitations. -Patient likely with primary hyperthyroidism as the cause of her symptoms. -Will obtain anti-TPO, anti-thyroglobulin antibody levels. Patient would need radio-iodine uptake study for thyroid which can be done outpatient. -Free T4 >2 times UNL, will start on 10mg BID methimazole. -Can continue propranolol 10mg TID PRN. -Obtain echocardiogram and repeat EKG. -Can likely discharge if echo normal, f/u outpatient. (2) Hypomagnesemia: Plan: -Magnesium 1.6 in the ER. Repleted 2gm MgSulfate. (3) Prediabetes: Plan: -Hx of prediabetes, A1c 6.1 in March. -Hold metformin while inpatient. (4) Asthma: Plan: -Chronic, continue home inhalers. (5) Migraine headache: Plan: -Chronic, no current migraine. Plan F/E/N/GI: Carb consistent DVT: SCD Code: Full Dispo: telemetry. History of Present Illness Chief Complaint: heart palpitations Primary Care Provider: Flor Hidalgo MD Ronna is a 42 year old female w/ PmHx asthma, migraine, prediabetes headaches coming in for heart palpitation sensation and chest pain. Patient states that over the past 2 weeks she has had chest tightness and some shortness of breath. These symptoms mainly come about with exertion and she said that the level it comes about with now is unusual for her. She has a little bit of shortness of breath sensation in the room as we are speaking. 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 She has not had any fevers, chills, recent URI, constipation, dysuria. She takes metformin on a daily basis for her prediabetes and said her metformin and Thanksgiving had her with some diarrhea. She has had more anxiety recently but attributes this to her work. She was seen in late March for these anxiety symptoms and was given propranolol 10mg PRN to try however she did not try it yet due to fearing low blood pressure from the medication. She does not have any history of thyroid disorder, father had a history of cardiac murmur and cardiac disease. She has also been having insomnia as well. She states in the room as I am talking to her there have been a few instances of the heart palpitations where she feels a heavy beating and flutter for a few seconds and then the sensation stops. In the ER hemoglobin was 11.2, WBC 3.78, D-dimer, CMP, troponin unremarkable. Her TSH was <0.010 and her Free T4 was 4.12. Her EKG showed sinus tachycardia with T wave inversion in V4-V6 along with occasional PVC. CXR without acute process. She was given 2gm magnesium sulfate for a magnesium of 1.6. Allergies Allergy/AdvReac Type Severity Reaction Status Date / Time azithromycin Allergy Intermediate Rash Verified 04/02/23 12:54 doxycycline Allergy Intermediate Rash Verified 04/02/23 12:54 hydrocodone Allergy Intermediate FLUSHING,SWEATING, Verified 04/02/23 12:54 AND ITCHING Penicillins Allergy Intermediate Rash Verified 04/02/23 12:54 nut - unspecified Allergy Mild anaphylaxis Verified 04/02/23 12:54 with every nut except peanuts Fish Containing Products Allergy Unknown ANAPHYLAXIS Verified 04/02/23 12:54 Macrobid Allergy Rash, Uncoded 03/31/23 10:01 sick, shortness of breath, fever, increased HR Home Medications Medication Instructions Recorded Confirmed Type ibuprofen 400 mg tablet 400 mg PO BID PRN Pain 10/03/18 04/02/23 History fluticasone propionate 50 intranasal PRN 09/30/22 04/02/23 History mcg/actuation nasal spray,suspension rizatriptan 10 mg disintegrating 10 mg PO .COMPLEX PRN Migraine 09/30/22 04/02/23 Rx tablet (Maxalt-[employer]) Headache #20 tabs metformin 500 mg tablet,extended 2,000 mg (4 x 500 mg) PO DAILY 11/19/22 04/02/23 Rx release 24hr #360 tabs flaxseed oil 1,000 mg capsule 1,000 mg PO DAILY 12/26/22 04/02/23 History multivitamin (Daily Multi-Vitamin 1 tab PO DAILY 12/26/22 04/02/23 History tablet) albuterol sulfate 90 mcg/actuation 1 - 2 inh inhalation QID PRN 06/29/23 04/02/23 Rx aerosol inhaler shortness of breath or wheezing #8.5 grams diphenhydramine HCl 25 mg tablet 25 mg PO Q6H PRN itching #1 tab 06/29/23 04/02/23 Rx methimazole 10 mg tablet 10 mg PO BID #60 tabs 06/29/23 Rx propranolol 10 mg tablet 10 mg PO TID anxiety #90 tabs 06/29/23 Rx Past Med/Surg History Medical History (Updated 06/29/23 @ 09:50 by Reji Grant MD) Diabetes Prolapse of urethra Migraine headache Asthma Surgical History S/P colonoscopy History of tooth extraction H/O section X2 Family History Father Hypertension Mother Hypertension Prediabetes Denies family history of Ovarian cancer Prostate cancer Myocardial infarction Breast cancer Colorectal cancer Social History Smoking Status: Never smoker Second Hand Exposure: Yes ( smokes outside); Do You Dip or Chew Tobacco: No; Hx Alcohol Use: No Hx Substance Use: No Preferred Language: Serbian Communication Ability: Effective Visual Impairment: No Limitations Hearing Ability: Normal Gig Tender Required: No Beliefs That Will Affect Care: None marital status: Current Living Situation: Spouse current occupational status: employed 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 Physical Exam Constitutional: WD/WN, vitals as above Eyes: PERRL, conjunctivae normal, anicteric sclerae Neck: trachea midline, no thyromegaly Respiratory: normal respiratory effort, lungs clear to auscultation Cardiovascular: Rate/Rhythm: regular rate and regular rhythm Heart Sounds: normal S1, normal S2 and + murmur (Soft I/ holosystolic murmur. ) Gastrointestinal (Abdomen): normal bowel sounds, soft, nontender, no hepatosplenomegaly Skin: no rashes, warm and dry Psychiatric: A+Ox3, euthymic affect Results & Data Results & Data Vital Signs (Past 12 Hours) Vital Signs Temp Pulse Pulse Resp BP BP Pulse Ox 06/28/23 01:19 94 H 18 127/70 99 06/27/23 23:59 98 H 13 131/99 100 06/27/23 23:44 99 06/27/23 23:35 36.5 C 100 H 20 130/81 99 O2 Del Method 06/28/23 01:19 Room Air 06/27/23 23:59 Room Air 06/27/23 23:44 Room Air 06/27/23 23:35 Room Air Supervising Physician Co-Signing Physician Notes Attending addendum: I have physically seen this patient, have supervised the medical residents ac tivities, and agree with the H&P unless as otherwise noted. Assessment and Plan: Hyperthyroidism/thyrotoxicosis- Primary symptom of palpitations, chest discomfort and shortness of breath for the past 2 weeks EKG was sinus tachycardia and ST-T changes in leads V4 through V6 TSH less than 0.010, free T4 4.12 Check free T3, thyroid-stimulating antibody panel Will need thyroid ultrasound and I-131 thyroid uptake study Patient has reportedly been on propranolol 10 mg 3 times daily as needed anxiety, but was likely directly or indirectly treating tachycardia Propranolol 10 mg p.o. 3 times daily Start methimazole 10 mg p.o. twice daily Will need to establish with endocrinology Hypomagnesemia- Magnesium 1.6 Given magnesium sulfate 2 g IV, recheck laboratories in a.m. Contributing factor to tachycardia Prediabetes- Hold metformin for now, can be resumed upon discharge Place on Accu-Cheks with NovoLog SSI Remaining orders and notations as noted Resident Activity Tracking Resident Involvement: Resident Care Provided Care Provided: Adult Hospital Medicine
[2023-06-28] MEDS ORDERED: ALBUTEROL HFA 8 GM INHALER INH PRN (03:53)
[2023-06-28] MEDS ORDERED: PROPRANOLOL HCL 10 MG TAB PO PRN (03:53)
[2023-06-28] MEDS ORDERED: ONDANSETRON INJ 2 MG/ML 2 ML VIAL IV PRN (03:53)
--- NOTE | 2023-06-28 08:00 | Electrocardiogram Report ---
Test Reason : Blood Pressure : / mmHG Vent. Rate : 103 BPM Atrial Rate : 103 BPM P-R Int : 144 ms QRS Dur : 086 ms QT Int : 338 ms P-R-T Axes : 043 065 005 degrees QTc Int : 442 ms Sinus tachycardia with Premature ventricular complexes Voltage criteria for left ventricular hypertrophy Diffuse Minor Nonspecific T wave abnormality Abnormal ECG No previous ECGs available Confirmed by Zac Zamora ([id number]) on 06/28/2023 8:00:23 AM Referred By: REFERRED SELF Confirmed By:Zac Zamora
[2023-06-28] MEDS: methIMAzole 5 MG TABLET PO SCH ×2 (09:03→22:29)
--- NOTE | 2023-06-28 12:04 | XRay Report ---
XR chest 1V portable CLINICAL HISTORY: Chest pain, nonspecific TECHNIQUE: Single frontal radiograph of the chest was obtained. Comparison: Comparison is made to chest radiograph 11/17/2014 FINDINGS: No lines and tubes are seen. The cardiomediastinal silhouette is normal. The lungs are clear. No evid ence of pleural effusion or pneumothorax. IMPRESSION: No acute chest disease. ACT 112: Negative or not required by law. Electronically signed by: Adis Perlata M.D. 06/28/2023 12:03 PM
[2023-06-28] MEDS ORDERED: ATENOLOL 25 MG TABLET PO ONE (12:39)
--- NOTE | 2023-06-28 12:43 | XCELERA ---
[id number]
--- NOTE | 2023-06-28 16:50 | Ultrasound Report ---
ULTRASOUND SOFT TISSUE HEAD AND NECK. CLINICAL HISTORY: new onset hyperthyroidism TECHNIQUE: Multiple real time sonographic images of the thyroid were obtained. Comparison: None available at the time of this dictation. FINDINGS: The right thyroid lobe measures 5.3 x 1.9 x 1.6 cm. The left thyroid lobe measures approxim ately 5.6 x 2.0 x 1.9 cm. The isthmus measures 0.5 cm. IMPRESSION: Heterogeneous gland is seen with increased vascular flow, compatible with autoimmune process such as Graves' disease in this patient with thyroidism. No suspicious thyroid nodules. 0 points = TR 1, benign 2 points= TR 2, not suspicious 3 points= TR 3, mildly suspicious. > 1.5 cm- follow year 1, 3, 5 years. > 2.5 cm- FNA 4-6 points= TR 4, moderately suspicious. > 1 cm- follow year 1, 2, 3, 5 years. >1.5 cm- FNA 7 or more points= TR 5, highly suspicious. > 0.5 cm- follow yearly x 5 years. > 1 cm- FNA ACT 112: Negative or not required by law. Electronically signed by: Adis Peralta M.D. 06/28/2023 4:49 PM
[2023-06-28] MEDS ORDERED: metFORMIN HCL ER 500 MG TABCR PO ONE (17:38)
[2023-06-28] MEDS: ACETAMINOPHEN 325 MG TAB PO PRN (17:51)
--- NOTE | 2023-06-28 20:11 | Hospitalist Progress Note ---
Date of Service June 28, 2023 Assessment & Plan (1) Hyperthyroidism: Plan: TSH undetectable FT4 and FT3 high consistent with primary hyperthyroidism thyroid u/s findings noted - suspected Graves +family h/o Graves started methimazole 10mg BID started atenolol 25mg daily no proptosis on exam labs stable will send to endo post discharge send thyroid stimulating immunoglobulin watch overnight, hopefully home tomorrow (2) Hypomagnesemia: Plan: replacement given repeat level am could be due to wasting in setting of hyperthyroidism? other cause? (3) Palpitations: Plan: 2nd to #1 change inderal to once daily atenolol 25mg daily I had patient walk in hallway after getting the atenolol -- HR at most was about 100 (4) Acute dyspnea: Plan: suspect 2nd to #1 also, she is mildly leukopenic which could be a sign of a viral process however, lungs are clear and cxr is normal o2 sats also normal monitor (5) Anxiety: Plan: certainly hyperthyroidism will make this worse as #1 improves there should be some improvement in anxiety sx's (6) Asthma: Plan: no exacerbation at this time (7) Diabetes: Plan: a1c 6.1% in 03/25 cont metformin xr 2000mg daily Admission and Anticipated Discharge Date Admission Date: June 28, 2023 Subjective pt reports +family h/o Graves disease her main symptoms have been palpitations, feeling warm/sweaty, weight loss no tremors some ?diarrhea (although more chronic) she reports she takes metformin xr 2000mg daily for DM Review of Systems Review of Systems: cv - no orthopnea/chest pain pulm - no dyspnea today GI - no nausea/emesis HENT - denies anterior neck pain recently Physical Exam Physical Exam: gen - NAD, looks good neck - NONTENDER thyroid; goiter present - mild - left lobe seems a little bigger than right lobe; no nodules HENT - MMM heart - RRR, s1 s2, no murmur lungs - CTA b/l abd - soft NT ND BS+ ext - no edema, pulses 2+ b/l skin - not diaphoretic Results & Data Results & Data Vital Signs (Past 12 Hours) Vital Signs Pulse Resp BP Pulse Ox Pulse Ox O2 Del Method O2 Del Method 06/28/23 16:35 100 H 16 128/79 98 Room Air 11/26/23 14:48 100 H 06/28/23 14:47 98 Room Air 06/28/23 13:23 96 H 17 130/78 98 Room Air Laboratory Results Laboratory Results - last 24 hr 06/28/23 06/28/23 06/28/23 00:06 00:41 02:00 WBC 3.78 L RBC 4.07 L Hgb 11.2 L Hct 34.4 L MCV 84.5 MCH 27.5 MCHC 32.6 RDW Std Deviation 41.7 RDW Coeff of Merry 13.4 Plt Count 377 MPV 8.8 L Immature Gran % (Auto) 0.3 Neut % (Auto) 34.1 Lymph % (Auto) 49.5 Mills % (Auto) 13.2 Eos % (Auto) 2.9 Baso % (Auto) 0.0 Neut # (Auto) 1.29 L Lymph # (Auto) 1.87 Mills # (Auto) 0.50 Eos # (Auto) 0.11 Baso # (Auto) 0.00 Immature Gran # (Auto) 0.01 D-Dimer 300 Sodium 136 Potassium 4.0 Chloride 103 Carbon Dioxide 28 Anion Gap 5 BUN 13 Creatinine 0.51 L Est Cr Clr Drug Dosing 121.9 Est GFR ( Amer) 139.4 Est GFR (Non-Af Amer) 120.3 BUN/Creatinine Ratio 25.5 H Glucose 285 H POC Glucose Calcium 9.4 Magnesium 1.6 L Total Bilirubin 0.3 AST 33 ALT 43 Alkaline Phosphatase 79 Troponin I High Sens 3.4 3.8 Total Protein 7.3 Albumin 4.0 Globulin 3.3 Albumin/Globulin Ratio 1.2 Lipase 67 TSH < 0.010 L Free T4 4.12 H Free T3 7.21 H Thyroid Stim Immunoglob HCG, Qual Negative Thyroid Antimicrosomal Pending Thyroglobulin Antibody Pending SARS-CoV-2 (PCR) NEGATIVE Influenza Type A (PCR) Negative Influenza Type B (PCR) Negative RSV (RT-PCR) Negative 06/28/23 06/28/23 06/28/23 12:41 17:37 18:40 WBC RBC Hgb Hct MCV MCH MCHC RDW Std Deviation RDW Coeff of Merry Plt Count MPV Immature Gran % (Auto) Neut % (Auto) Lymph % (Auto) Mills % (Auto) Eos % (Auto) Baso % (Auto) Neut # (Auto) Lymph # (Auto) Mills # (Auto) Eos # (Auto) Baso # (Auto) Immature Gran # (Auto) D-Dimer Sodium Potassium Chloride Carbon Dioxide Anion Gap BUN Creatinine Est Cr Clr Drug Dosing Est GFR ( Amer) Est GFR (Non-Af Amer) BUN/Creatinine Ratio Glucose POC Glucose 187 H 146 H Calcium Magnesium Total Bilirubin AST ALT Alkaline Phosphatase Troponin I High Sens Total Protein Albumin Globulin Albumin/Globulin Ratio Lipase TSH Free T4 Free T3 Thyroid Stim Immunoglob Pending HCG, Qual Thyroid Antimicrosomal Thyroglobulin Antibody SARS-CoV-2 (PCR) Influenza Type A (PCR) Influenza Type B (PCR) RSV (RT-PCR) Diagnostic Findings Chest X-Ray 06/27/23 23:44 XR chest 1V portable CLINICAL HISTORY: Chest pain, nonspecific TECHNIQUE: Single frontal radiograph of the chest was obtained. Comparison: Comparison is made to chest radiograph 11/17/2014 FINDINGS: No lines and tubes are seen. The cardiomediastinal silhouette is normal. The lungs are clear. No evidence of pleural effusion or pneumothorax. IMPRESSION: No acute chest disease. ACT 112: Negative or not required by law. Electronically signed by: Adis Peralta M.D. 06/28/2023 12:03 PM Thyroid Ultrasound 06/28/23 11:11 ULTRASOUND SOFT TISSUE HEAD AND NECK. CLINICAL HISTORY: new onset hyperthyroidism TECHNIQUE: Multiple real time sonographic images of the thyroid were obtained. Comparison: None available at the time of this dictation. FINDINGS: The right thyroid lobe measures 5.3 x 1.9 x 1.6 cm. The left thyroid lobe measures approximately 5.6 x 2.0 x 1.9 cm. The isthmus measures 0.5 cm. IMPRESSION: Heterogeneous gland is seen with increased vascular flow, compatible with autoimmune process such as Graves' disease in this patient with thyroidism. No suspicious thyroid nodules. 0 points = TR 1, benign 2 points= TR 2, not suspicious 3 points= TR 3, mildly suspicious. > 1.5 cm- follow year 1, 3, 5 years. > 2.5 cm- FNA 4-6 points= TR 4, moderately suspicious. > 1 cm- follow year 1, 2, 3, 5 years. >1.5 cm- FNA 7 or more points= TR 5, highly suspicious. > 0.5 cm- follow yearly x 5 years. > 1 cm- FNA ACT 112: Negative or not required by law. Electronically signed by: Adis Peralta M.D. 06/28/2023 4:49 PM PG Care Time/CCT Total # of Minutes Spent Total Time Spent with Patient: Total time spent is greater than 50% in coordination of care (as documented) at patient's floor/unit and/or counseling patient: Coding Level of Care Code 97697 SUB INP/OBS CARE 2/35MIN Diagnoses Hyperthyroidism E05.90 Hypomagnesemia E83.42 Palpitations R00.2 Acute dyspnea R06.00 Anxiety F41.9 Asthma J45.909 Diabetes E11.9
[2023-06-29 07:28] LABS: Basophils # (auto) 0.01 K/uL (0.00-0.20); Basophils % (auto) 0.2 %; Eosinophils # (auto) 0.13 K/uL (0.00-0.50); Eosinophils % (auto) 2.8 %; Hemoglobin 11.1 g/dl (12.0-16.0); Immature Granulocytes # (auto) 0.01 K/uL (0.01-0.20); Immature Granulocytes % (auto) 0.2 %; Lymphocytes # (auto) 2.04 K/uL (1.20-3.40); Mean Corpuscular Hemoglobin 27.3 pg (25.0-34.0); Mean Corpuscular Hgb Conc 32.6 g/dL (32.0-36.0); Mean Corpuscular Volume 83.5 fL (80.0-100.0); Mean Platelet Volume 8.7 fL (9.4-12.4); Monocytes # (auto) 0.52 K/uL (0.11-0.59); Monocytes % (auto) 11.2 %; Neutrophils # (auto) 1.93 K/uL (1.40-6.50); Neutrophils % (auto) 41.6 %; Platelet Count 402 K/uL (130-400); RDW Coefficient of Variation 13.3 % (11.5-14.5); RDW Standard Deviation 40.4 fL (36.4-46.3); Red Blood Count 4.07 M/uL (4.20-5.40); White Blood Count 4.64 K/ul (4.8-10.8)
[2023-06-29] MEDS ORDERED: metFORMIN HCL ER 500 MG TABCR PO SCH (07:30)
[2023-06-29 07:46] LABS: BUN Creatinine Ratio 31.8 (10-20); Calcium 9.2 mg/dl (8.6-10.3); Creatinine Clr Calc Pharmacy 141.3 ml/min; Est GFR (African American) 146.3 ml/min; Est GFR (Non-African American) 126.3 ml/min; Magnesium 1.6 mg/dl (1.7-2.4)
[2023-06-29] MEDS: methIMAzole 5 MG TABLET PO SCH (08:42)
[2023-06-29] MEDS: ACETAMINOPHEN 325 MG TAB PO PRN (08:45)
[2023-06-29] MEDS ORDERED: diphenhydrAMINE Capsule 25 MG CAP PO PRN (08:53)
[2023-06-29] MEDS ORDERED: diphenhydrAMINE Capsule 25 MG CAP PO ONE (08:53)
[2023-06-29] MEDS ORDERED: MAGNESIUM SULFATE / D5W 1 GM/100 ML BAG IV ONE (08:53)
[2023-06-29] MEDS ORDERED: ATENOLOL 25 MG TABLET PO SCH (09:00)
--- NOTE | 2023-06-29 13:41 | Discharge Summary ---
Date of Service June 29, 2023 Admission HPI Per Admitting Provider Ronna is a 42 year old female w/ PmHx asthma, migraine, prediabetes headaches coming in for heart palpitation sensation and chest pain. Patient states that over the past 2 weeks she has had chest tightness and some shortness of breath. These symptoms mainly come about with exertion and she said that the level it comes about with now is unusual for her. She has a little bit of shortness of breath sensation in the room as we are speaking. 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 She has not had any fevers, chills, recent URI, constipation, dysuria. She takes metformin on a daily basis for her prediabetes and said her metformin and Thanksgiving had her with some diarrhea. She has had more anxiety recently but attributes this to her work. She was seen in late March for these anxiety symptoms and was given propranolol 10mg PRN to try however she did not try it yet due to fearing low blood pressure from the medication. She does not have any history of thyroid disorder, father had a history of cardiac murmur and cardiac disease. She has also been having insomnia as well. She states in the room as I am talking to her there have been a few instances of the heart palpitations where she feels a heavy beating and flutter for a few seconds and then the sensation stops. In the ER hemoglobin was 11.2, WBC 3.78, D-dimer, CMP, troponin unremarkable. Her TSH was <0.010 and her Free T4 was 4.12. Her EKG showed sinus tachycardia with T wave inversion in V4-V6 along with occasional PVC. CXR without acute process. She was given 2gm magnesium sulfate for a magnesium of 1.6. Discharge Exam gen - NAD, looks good neck - NONTENDER thyroid; goiter present - mild - left lobe seems a little bigger than right lobe; no nodules HENT - MMM heart - RRR, s1 s2, no murmur lungs - CTA b/l abd - soft NT ND BS+ ext - no edema, pulses 2+ b/l skin - not diaphoretic Discharge Data Allergies Allergy/AdvReac Type Severity Reaction Status Date / Time azithromycin Allergy Intermediate Rash Verified 04/02/23 12:54 doxycycline Allergy Intermediate Rash Verified 04/02/23 12:54 hydrocodone Allergy Intermediate FLUSHING,SWEATING, Verified 04/02/23 12:54 AND ITCHING Penicillins Allergy Intermediate Rash Verified 04/02/23 12:54 nut - unspecified Allergy Mild anaphylaxis Verified 04/02/23 12:54 with every nut except peanuts Fish Containing Products Allergy Unknown ANAPHYLAXIS Verified 04/02/23 12:54 Macrobid Allergy Rash, Uncoded 03/31/23 10:01 sick, shortness of breath, fever, increased HR Consultations 06/28/23 01:48 ED Decision to Admit Stat Ordered Studies 06/28/23 11:11 US thyroid Routine Hospital Course (1) Hyperthyroidism: TSH undetectable FT4 and FT3 high consistent with primary hyperthyroidism thyroid u/s findings noted - suspected Graves +family h/o Graves started methimazole 10mg BID started atenolol 25mg daily no proptosis on exam labs stable will send to endo post discharge send thyroid stimulating immunoglobulin watch overnight, hopefully home tomorrow (2) Hypomagnesemia: replacement given repeat level am could be due to wasting in setting of hyperthyroidism? other cause? (3) Palpitations: 2nd to #1 change inderal to once daily atenolol 25mg daily I had patient walk in hallway after getting the atenolol -- HR at most was about 100 (4) Acute dyspnea: suspect 2nd to #1 also, she is mildly leukopenic which could be a sign of a viral process however, lungs are clear and cxr is normal o2 sats also normal monitor (5) Anxiety: certainly hyperthyroidism will make this worse as #1 improves there should be some improvement in anxiety sx's (6) Asthma: no exacerbation at this time (7) Diabetes: a1c 6.1% in 03/25 cont metformin xr 2000mg daily Discharge Plan Discharge Items Patient Disposition: Home - Self-Care Reason For Visit: PALPITATIONS, CHEST PAIN Discharge Diagnosis: Sweats, palpitations, tachycardia, chest discomforts, weight loss - due to new- onset HYPERTHYROIDISM Condition on Discharge: Good Activity: As commented below Activity Comment: light activities for the next couple of weeks then gradually increase Exercise/Sports: Wait until after follow-up appointment Non-emergency contact: Primary Care Provider and Specialist Call non-emergency contact if: you have any medication questions and your symptoms worsen Follow-up/Referrals: Lucio Bruce MD [Physician] - (ideally 2-3 weeks - Dr Bruce or any endocrinology provider - for hyperthyroidism management (suspected Graves)) Flor Hidalgo MD [Primary Care Provider] - Saloni Lawrence MD [Physician] - 07/23/23 10:40 am Diet: Carb Consistent or DM2 Addtl Attending Provider Instructions: Ms Aguilar, You have been diagnosed with hyperthyroidism, or over-active thyroid. The hyperthyroidism is the likely cause of many of your recent symptoms including feeling hot/sweats, palpitations, weight loss, etc. Your thyroid ultrasound did not show nodules or small growths. There were findings, however, that may suggest a diagnosis of "Graves Disease." You will need additional testing to confirm this diagnosis. Various blood tests for the thyroid were sent and are pending at discharge. Typically the first step in treating hyperthyroidism is medication. One of the most common drugs to treat over-active thyroid is "methimazole." You have been started on 10mg twice daily of methimazole. This medication will begin to control your hyperthyroidism over several weeks or longer. It is important that you avoid becoming when taking methimazole as this medication is NOT recommended during . To control many of the symptoms of your over-active thyroid (palpitations, tachycardia/rapid heart rate, etc) you will need to take a "beta lise medication." We started you on atenolol and this controlled your blood pressure and heart rate well. However, you would like to continue propranolol at this time which is very a cceptable. Your propranolol will be 10mg three times daily. If you notice that your asthma symptoms are worse while taking propranolol please let Dr Hidalgo know and the propranolol can be switched to another beta lise medication. Please purchase a blood pressure cuff and check your heart rate and blood pressure once or twice a day. If your resting pulse is about 60-90 those are acceptable readings. If you are running 100 or higher at rest please let your doctors know - you may need a larger dose of the propranolol. You will need to see [facility] for ongoing treatment. Please see separate section with appointment details. While waiting for your appointment with endocrinology your family doctor can repeat your thyroid levels in the near-future. Your magnesium level was modestly low while here. I would simply have your family doctor repeat the level in a week or two. An echocardiogram of your heart was normal during the stay. Your heart is functioning well and your heart valves are healthy. Finally, we had discussed vitamin D supplements. You can take 2000 IU daily of vitamin D for bone health and overall well-being. Return to [facility] if - * you have fevers over 100 degrees * you have worsening shortness of breath or asthma symptoms that are not responding to your albuterol treatments * you feel dizzy or lightheaded * any other concerns It was our pleasure to care for you! Pending Studies at Discharge: Yes Studies:: Thyroid blood tests Stand-Alone Forms: My [facility], Smoking Cessation Medications and DC Order Prescriptions: New methimazole 10 mg tablet 10 mg PO BID Qty: 60 2RF Rx Instructions: for hyperthyroidism Continued metformin 500 mg tablet extended release 24hr 2,000 mg PO DAILY Qty: 360 2RF multivitamin [Daily Multi-Vitamin] Tablet 1 tab PO DAILY flaxseed oil 1,000 mg capsule 1,000 mg PO DAILY Rx Instructions: administer with a meal rizatriptan [Maxalt-EXPENDITURE REQUISITION CLERK] 10 mg tablet,disintegrating 10 mg PO .COMPLEX PRN (Reason: Migraine Headache) Qty: 20 2RF Rx Instructions: Take one tablet at the onset of headache. May repeat dose every 2 hours x2. Do not exceed 3 doses per 24 hrs fluticasone propionate 50 mcg/actuation spray,suspension intranasal PRN ibuprofen 400 mg Tablet 400 mg PO BID PRN (Reason: Pain) Changed propranolol 10 mg tablet 10 mg PO TID Qty: 90 2RF albuterol sulfate 90 mcg/actuation HFA aerosol inhaler 1 - 2 inh inhalation QID PRN (Reason: shortness of breath or wheezing) Qty: 8.5 0RF diphenhydramine HCl 25 mg tablet 25 mg PO Q6H PRN (Reason: itching) Qty: 1 0RF Rx Instructions: [id number] Discharge Orders: Discharge Order (Routine); Ordered 06/29/23 Ordered By: Reji Gage/Other Patient Handouts: Methimazole Oral Tablet, Treating Thyroid Problems, When You Have Graves' Disease, When You Have Hyperthyroidism, ED Hyperthyroidism Admission Data Admit Date/Time: 06/28/23 02:42 Attending Provider: Siuta,Reji R Admit Provider: Rickie Richards Primary Care Provider: Flor Hidalgo Other Providers: Wally Mims Other Interventions: Discharge Summary Assessment (RN) Last Done: 06/29/23 13:34 Coding Diagnoses Hyperthyroidism E05.90 Hypomagnesemia E83.42 Palpitations R00.2 Acute dyspnea R06.00 Anxiety F41.9 Asthma J45.909 Diabetes E11.9
--- NOTE | 2023-06-30 03:53 | Billing Data ---
Date of Service June 30, 2023 Coding Level of Care Code 44387 INT INP/OBS CARE
[2023-06-30 17:18] LABS: Microsomal Ab 1 IU/mL (<9); Thyroglobulin Antibodies <1 IU/mL (< or = 1)
== END 2023-06-29 14:50 | disposition home or self-care (01) | DRG 645 ==
LOC: ED 23:27 → SUATTDRO 06-28 02:42 → EDINP 06-28 02:42 → 2N 06-28 21:54 → 3E 06-29 04:59